=== PATIENT | female | born 1975 | race Caucasian/White ===

== ENCOUNTER 2021-06-22 11:48 | Outpatient (CLI) | payer OTHER, SELFPAY ==
--- NOTE | 2021-06-22 12:00 | RT.EKG_ITS ---
APPROVED REPORT Exam: Resting ECG Reason for Exam: hypertention Patient Location: O HR:103 bpm ECG Measurements Heart Rate 103 AXIS [place] 157 P 47 QRSd 87 QRS -12 QT 356 T 11 QTc 467 Conclusion Sinus tachycardia...rate> 99
== END 2021-06-22 11:49 | disposition home or self-care (01) ==
PROVIDERS: PCP Family Medicine; Visit Provider Family Medicine
DX: I10 Essential (primary) hypertension (principal)
CPT/HCPCS: 93010

== ENCOUNTER 2021-07-21 03:19 | Outpatient (CLI) | payer OTHER, SELFPAY ==
[2021-07-21 08:42] LABS: Abs Immature Grans 0.03 10^3/uL (0.0-0.06); Absolute Basophil Count 0.04 10^3/uL (0.0-0.2); Absolute Eosinophil Count 0.41 10^3/uL (0.0-0.7); Absolute Lymphocyte Count 1.82 10^3/uL (1.2-3.4); Absolute Neutrophil Count 6.05 10^3/uL (1.2-6.7); Basophils % 0.5; Eosinophils % 4.7; HCT 42.3 % (36.0-46.0); HGB 12.9 g/dL (11.2-15.7); Immature Grans % 0.3; Lymphocytes % 20.8; MCH 25.6 pg (27.0-33.0); MCHC 30.5 % (32.0-36.0); MCV 84.1 fL (80-95); MPV 9.2 fL (8.0-11.0); Monocytes % 4.6; Neutrophils % 69.1; Nucleated RBC 0 %; Platelet Count 373 10^3/uL (130-400); RBC 5.03 10^6/uL (3.93-5.22); RDW 13.2 % (11.7-14.6); RDW-SD 40.5 fL; WBC 8.75 10^3/uL (4.4-10.8)
[2021-07-21 08:45] LABS: Bilirubin Negative (Negative); Blood Trace-intact (Negative); Clarity Clear (Clear); Glucose Negative (Negative); Ketones Negative (Negative); Leukocyte Esterase Trace (Negative); Nitrite Negative (Negative); Specific Gravity 1.025 (1.005-1.025); Urobilinogen 0.2 EU/dL (Up TO 0.2); pH 5.5 (5-8)
[2021-07-21 08:53] LABS: Bacteria Rare HPF (Negative); C & S Indicated? No/Sq. Contamination; Casts Negative LPF (Negative); Crystals Negative HPF (Negative); Epithelial Cells Moderate HPF (Negative); Mucus Negative (Negative); RBC 0-2 HPF (0-2); WBC 0-2 HPF (0-5)
[2021-07-21 10:02] LABS: ALT 19 U/L (14-59); AST 14 U/L (15-37); Albumin 3.4 g/dL (3.4-5.0); Alkaline Phosphatase 120 U/L (46-116); Anion Gap 10.3 mmol/L (3-11); BUN 18 mg/dL (7-18); Bilirubin, Total 0.3 mg/dL (0.2-1.0); CO2 27.7 mmol/L (21.0-32.0); CREATININE 0.8 mg/dL (0.55-1.02); Calcium 8.8 mg/dL (8.5-10.1); Calculated LDL 166 mg/dL (<100); Chloride 106 mmol/L (98-107); Cholesterol 242 mg/dL (<200); Glucose 94 mg/dL (74-106); HDL Cholesterol 44 mg/dL (40-60); Potassium 3.8 mmol/L (3.5-5.1); Sodium 144 mmol/L (136-145); TSH (W/Ref FT4) 2.64 uIU/mL (0.36-3.74); Total Protein 7.2 g/dL (6.4-8.2); Triglyceride 164 mg/dL (<150)
[2021-07-22 09:51] LABS: HIV-1/2 Ag & Ab Screen Negative (Negative)
[2021-07-22 11:30] LABS: Hepatitis C Ab w Rflx HCV PCR Negative (Negative)
== END 2021-07-21 03:20 | disposition home or self-care (01) ==
PROVIDERS: PCP Family Medicine; Visit Provider Family Medicine
DX: Z11.59 Encounter for screening for other viral diseases (principal); I10 Essential (primary) hypertension; Z11.4 Encounter for screening for human immunodeficiency virus [HIV]
CPT/HCPCS: 36415; 80053; 80061; 86803; 87389; 81003; 81015; 84443; 85025

== ENCOUNTER 2021-11-19 10:22 | Outpatient (CLI) | payer OTHER, SELFPAY ==
[2021-11-19 10:39] LABS: Source Nasal/Nares
[2021-11-19 14:10] LABS: COVID-19 PCR Negative (Negative)
== END 2021-11-19 10:23 | disposition home or self-care (01) ==
LOC: LBO 10:23
PROVIDERS: PCP Nurse Practitioner; Visit Provider Obstetrics & Gynecology
DX: Z20.822 Contact with and (suspected) exposure to COVID-19 (principal)
CPT/HCPCS: 87635

== ENCOUNTER 2021-11-25 09:46 | Outpatient (CLI) | payer OTHER, SELFPAY ==
[2021-11-25 11:06] LABS: Source Nasal/Nares
[2021-11-25 14:17] LABS: COVID-19 PCR Negative (Negative)
== END 2021-11-25 09:47 | disposition home or self-care (01) ==
LOC: LBO 09:47
PROVIDERS: PCP Nurse Practitioner; Visit Provider Obstetrics & Gynecology
DX: Z20.822 Contact with and (suspected) exposure to COVID-19 (principal)
CPT/HCPCS: 87635

== ENCOUNTER 2021-11-27 18:19 | Outpatient (REF) | payer OTHER, SELFPAY ==
[2021-11-27 09:37] LABS: Source Nasal/Nares
[2021-11-27 12:11] LABS: COVID-19 PCR Negative (Negative)
== END 2021-11-27 18:20 | disposition home or self-care (01) ==
LOC: LBN 18:19
PROVIDERS: PCP Nurse Practitioner; Visit Provider Obstetrics & Gynecology
DX: Z20.822 Contact with and (suspected) exposure to COVID-19 (principal)
CPT/HCPCS: 87635

== ENCOUNTER 2022-02-02 14:43 | Outpatient (REF) | payer OTHER, SELFPAY ==
[2022-02-03 20:10] LABS: COVID-19 RT-PCR UVMMC Result Negative (Negative)
== END 2022-02-02 14:44 | disposition home or self-care (01) ==
LOC: LBN 14:43
PROVIDERS: PCP Nurse Practitioner; Visit Provider Obstetrics & Gynecology
DX: Z20.822 Contact with and (suspected) exposure to COVID-19 (principal)
CPT/HCPCS: 87635; U0003

== ENCOUNTER 2022-02-03 08:41 | Outpatient (CLI) | payer OTHER, SELFPAY ==
--- NOTE | 2022-02-03 09:30 | HOLTER_ITS ---
APPROVED REPORT Conclusion This is a 48-hour Holter monitor ordered for palpitations Rhythm throughout was sinus with an average heart rate of 76. Minimum was 53, maximum 115 There were very rare isolated premature ventricular contractions There were very rare isolated atrial premature beats. There was one self-limited atrial run, 7 beats in duration, rate 110/min There was no atrial fibrillation, no high-grade AV block, no pauses greater than 3 seconds No patient symptoms were reported
== END 2022-02-03 08:42 | disposition home or self-care (01) ==
LOC: RT 08:41
PROVIDERS: PCP Nurse Practitioner; Visit Provider Nurse Practitioner
DX: R00.2 Palpitations (principal); I49.1 Atrial premature depolarization
CPT/HCPCS: 93225

== ENCOUNTER 2022-02-03 09:56 | Outpatient (RCR) | payer OTHER, SELFPAY | END 2022-02-14 23:59 | disposition home or self-care (01) | LOC: RT 09:56 | PROVIDERS: PCP Nurse Practitioner; Visit Provider Nurse Practitioner | DX: R00.2 Palpitations (principal); I49.1 Atrial premature depolarization | CPT/HCPCS: 93225; 93226 ==

== ENCOUNTER 2022-02-04 09:38 | Outpatient (CLI) | payer OTHER, SELFPAY ==
[2022-02-04 09:42] LABS: Source Nasal/Nares
[2022-02-04 10:41] LABS: COVID-19 PCR Negative (Negative)
== END 2022-02-04 09:39 | disposition home or self-care (01) ==
LOC: LBO 09:39
PROVIDERS: PCP Nurse Practitioner; Visit Provider Obstetrics & Gynecology
DX: Z20.822 Contact with and (suspected) exposure to COVID-19 (principal)
CPT/HCPCS: 87635

== ENCOUNTER 2022-03-17 10:25 | Outpatient (REF) | payer OTHER, SELFPAY ==
[2022-03-17 11:32] LABS: Source Nasal/Nares
[2022-03-17 14:20] LABS: COVID-19 PCR Negative (Negative)
== END 2022-03-17 10:26 | disposition home or self-care (01) ==
LOC: LBN 10:25
PROVIDERS: PCP Obstetrics & Gynecology; Visit Provider Obstetrics & Gynecology
DX: Z20.822 Contact with and (suspected) exposure to COVID-19 (principal)
CPT/HCPCS: 87635

== ENCOUNTER 2022-04-06 17:31 | Outpatient (REF) | payer OTHER, SELFPAY ==
[2022-04-06 11:46] LABS: Source Nasal/Nares
[2022-04-06 12:22] LABS: COVID-19 PCR Negative (Negative)
== END 2022-04-06 17:32 | disposition home or self-care (01) ==
LOC: LBN 17:31
PROVIDERS: PCP Nurse Practitioner; Visit Provider Obstetrics & Gynecology
DX: Z20.822 Contact with and (suspected) exposure to COVID-19 (principal)
CPT/HCPCS: 87635

== ENCOUNTER 2022-05-07 09:32 | Outpatient (CLI) | payer OTHER, SELFPAY ==
[2022-05-07 09:39] LABS: Source Nasal/Nares
[2022-05-07 10:13] LABS: COVID-19 PCR Negative (Negative)
== END 2022-05-07 09:33 | disposition home or self-care (01) ==
LOC: LBO 09:32
PROVIDERS: PCP Nurse Practitioner Family; Visit Provider Obstetrics & Gynecology
DX: Z20.822 Contact with and (suspected) exposure to COVID-19 (principal)
CPT/HCPCS: 87635

== ENCOUNTER 2022-05-10 10:00 | Outpatient (CLI) | payer OTHER, SELFPAY ==
[2022-05-10 10:19] LABS: Source Nasal/Nares
[2022-05-10 10:53] LABS: COVID-19 PCR Negative (Negative)
== END 2022-05-10 10:01 | disposition home or self-care (01) ==
LOC: LBO 10:01
PROVIDERS: PCP Nurse Practitioner Family; Visit Provider Obstetrics & Gynecology
DX: Z20.822 Contact with and (suspected) exposure to COVID-19 (principal)
CPT/HCPCS: 87635

== ENCOUNTER 2023-01-28 10:24 | Outpatient (REF) | payer OTHER, SELFPAY ==
--- NOTE | 2023-01-28 09:30 | PAPFT_PTH ---
PATIENT: Kiera Prabhakar LOC: [facility] U#:[id number] AGE/SX: 47/F ROOM: RE01/28/[address]: Rachel Moreno DO : 1975 BED: DIS: 01/28/2023 SPEC #: [id number] RECD: 01/28/23 13:10 STATUS: WILLIAM REQ #: [id number] KRISHNA: 01/28/23 09:[address]: Rachel Moreno DEPT: [facility] Cytology RECD BY: Licha Hernandez ENTERED: 01/28/23 13:11 SP TYPE: PAPFT OTHR DR: Jerry Nicole DNP Tissues: 1 - CX/ENDOCX FOR PAP SMEARS Procedures: PAP THIN PREP/UVM Screening HPV DNA PROBE Comments: [id number]
== END 2023-01-28 10:25 | disposition home or self-care (01) ==
LOC: LBN 10:24
PROVIDERS: PCP Nurse Practitioner Family; Visit Provider Obstetrics & Gynecology
DX: Z12.4 Encounter for screening for malignant neoplasm of cervix (principal); Z11.51 Encounter for screening for human papillomavirus (HPV)
CPT/HCPCS: 88142; 87624

== ENCOUNTER 2023-02-03 12:03 | Day surgery (SDC) | payer OTHER, SELFPAY ==
--- NOTE | 2023-02-02 20:04 | ENDO_ITS ---
Date of service: 02/03/23 Time of Service: 13:32 Endoscopy Report DATE OF PROCEDURE: 02/03/23 PRE-OP DIAGNOSIS: Gastritis POST-OP DIAGNOSIS: other (Peptic ulcer) PROCEDURE: EGD with biopsies SURGEON: Branden Quintana ANESTHESIA TYPE: General:No Airway ESTIMATED BLOOD LOSS: 5 PATHOLOGY: other (Gastric ulcer, random gastric biopsies) COMPLICATIONS: None DISPOSITION: same day INDICATIONS: Kiera is a 47-year-old woman with midepigastric gnawing abdominal pain. PROCEDURE START TIME: 13:18 PROCEDURE END TIME: 13:26 FINDINGS: Prepyloric gastric ulcer PROCEDURE DESCRIPTION: After the initiation of monitored anesthetic care, and with the assistance of a bite block, I advanced a standard gastroscope through the mouth past the hypopharynx and into the esophagus.? Under the direct vision of the scope, I advanced down the esophagus into the stomach.? Once I entered the stomach, I p erformed a brief inspection, followed by retroflexion towards the gastric cardia.? This appeared normal.? After that, I gently advanced the scope around the incisura angularis and examined the pylorus. There was a small amount of old blood right at the gastric antrum.? As I advanced towards the pylorus, there was a gastric ulcer just a few centimeters before the pyloric muscle. It was within the antrum. There was some mild stigmata of recent bleeding. The edges were smooth and rounded. I did perform cold forcep biopsy of the ulcer margin. There was minimal bleeding. Next, I advanced the scope through the pylorus into the duodenum.? The mucosa was pink and healthy appearing.? There were no abnormalities.? I was able to visualize bile draining into the duodenum through the ampulla Vater. ?Next, I began retracting the endoscope.? I brought the camera back into the stomach.? There were a few rare fundic gland polyps. Otherwise, the gastric body and cardia appeared normal. There was no evidence of hiatal hernia. I perform some random biopsies of the gastric antrum and gastric body to rule out H. pylori. I then gently desufflated some of the stomach, and withdrew the endoscope into the distal esophagus. The GE junction and Z-line were normal-appearing at 36 cm. ?Finally, I withdrew the scope along the length of the esophagus taking great care to examine the entirety of the mucosa.? I did not appreciate any abnormalities.
--- NOTE | 2023-02-02 20:04 | W.PREOPHP ---
Assessment and Plan Assessment and plan (1) Epigastric pain: Status: Acute Assessment and plan: We discussed the risks and benefits of diagnostic EGD today. I think she has a good understanding of the nature of the procedure. We will proceed as planned. History of Present Illness History of Present Illness Chief Complaint: Midepigastric pain Narrative: Kiera is 47 years old, and she was just admitted to [facility] with a chief complaint of a cute onset of midepigastric pain associated with lethargy and fatigue. She describes it as stabbing and gnawing, and right in the mid epigastric region. She tells me that [place] she had elevated D-dimer. She underwent CAT scans of the chest abdomen and pelvis were all negative. She was worked up for gallstones which was negative. She was started on Cipro and Flagyl, but she developed a rash, and in the absence of a unifying diagnosis, antibiotics were discontinued. She was advised to follow-up with an upper endoscopy and discharged. She is here today for EGD. PFSH All Active Problems (Updated 02/03/23 @ 12:34 by Branden Quintana MD) Epigastric pain (Acute) Essential hypertension (Chronic) Tachycardia (Chronic) Obesity (Chronic) Hyperlipidemia (Chronic) Anxiety (Chronic) Well woman exam with routine gynecological exam (Acute) Medical History Suspected sleep apnea Surgical History S/P appendectomy Per pt. states it burst when she was 3 years old but it was never removed. Family History Mother Rheumatic fever Father Diabetes Personal history of malignant neoplasm colon cancer - dx late 50's Gallstone pancreatitis Disorder of gallbladder Brother No problems noted. Social History Smoking/Tobacco Use Status: Never Second Hand Exposure: Yes Smoking risk assessment performed?: Yes Alcohol Intake: never Drug use: Never Substance use type: does not use Caregiver/Support person: No Household members: spouse Housing: house Communication Needs: None Do you need help understanding health information?: Never Pets and animals: Yes Pets and animals: dog(s) Sexually active: Yes Do you think of yourself as: straight/heterosexual Current gender identity: female What is your relationship status?: How often do you talk on the phone with friends or family?: three or more times per week How often do you get together with friends or relatives?: three or more times per week How often do you attend baptism or presybeterian services?: decline to answer Do you belong to any clubs or organized social groups?: no Panel score (0-1 are the most socially isolated patients): 2 What type of physical activity do you participate in: walking Duration: 15-30 minutes/day Frequency: 3-4 times per week Odalis/Amish: [employer] Special odalis needs: No Seatbelt use: always Drive intox or ride w/intox dolly driver: No Do you feel safe at home: Yes Do you feel safe in your relationship?: Yes History History 3 Para 3 Hx # Term Pregnancies 3 Multiple births Hx # Pregnancies Ectopic pregnancies AB induced Hx Number of Living Children 3 AB spontaneous Meds Allergies and Home Medications Allergies Allergy/AdvReac Type Severity Reaction Status Date / Time cephalexin [From Keflex] Allergy Severe Other (See Unverified 02/03/23 12:20 Comment) metronidazole [From Flagyl] Allergy Severe Other (See Unverified 02/03/23 12:20 Comment) Penicillins Allergy Severe Skin Rash Unverified 02/03/23 12:20 Sulfa (Sulfonamide AdvReac Severe colitis Unverified 02/03/23 12:20 Antibiotics) Home Medications Medication Instructions Recorded Confirmed Type metoprolol succinate 25 mg 25 mg PO DAILY #90 tabs 02/09/22 02/03/23 Rx tablet,extended release 24 hr trazodone 50 mg tablet 50 mg PO QHS PRN sleep #20 tabs 12/07/22 02/02/23 Rx triamcinolone acetonide 0.1 % 1 applic topical BID #30 grams 12/07/22 02/02/23 Rx topical cream Exam Const General: cooperative, healthy appearing and comfortable Orientation: awake and oriented x3 Eyes General: appearance normal, both eyes and all related structures Conjunctivae: conjunctivae normal Sclera: sclerae normal Resp Effort & Inspection: normal respiratory effort and able to speak in complete sentences Auscultation: clear to auscultation bilaterally Cardio Jugular venous pressure: no JVD Rate: regular rate Rhythm: regular rhythm Heart Sounds: S1 normal and S2 normal GI Inspection: non-distended Palpation: soft, no guarding, no hernias and tender (Mild midepigastric tenderness without any masses) Auscultation: normal bowel sounds Skin General skin exam: normal turgor Neuro General: patient alert, patient awake and patient oriented x3 Cognition: normal cognition Extrem Right lower extremity: no edema Left lower extremity: no edema
[2023-02-03 12:25] VITALS: BP 160/92; PULSE 82; RESP 16; TEMP 36.8; O2SAT 92
--- NOTE | 2023-02-03 12:34 | W.PM.DSUDISC ---
Date of service: 02/03/23 Time of Service: 13:27 Discharge Plan Disposition Patient Disposition: Home Discharge Details Attending Provider: Branden Quintana Primary Care Provider: Jerry Huston Home Meds and New Rx's Prescriptions: New omeprazole 20 mg capsule,delayed release(DR/EC) 20 mg PO BID Qty: 28 0RF Rx Instructions: Take 1 tablet by mouth in the morning, and 1 tablet by mouth in the evening sucralfate 1 gram tablet 1 g PO QACHS Qty: 56 0RF Continued trazodone 50 mg tablet 50 mg PO QHS PRN (Reason: sleep) Qty: 20 0RF triamcinolone acetonide 0.1 % cream 1 applic topical BID Qty: 30 0RF metoprolol succinate 25 mg tablet extended release 24 hr 25 mg PO DAILY Qty: 90 3RF Discharge Instructions Instructions: Peptic Ulcer (GEN), Diet for Stomach Ulcers and Gastritis (GEN) Additional Instructions: Kiera, we were able to complete your endoscopy today without any problems. You do have a small stomach ulcer. I did some biopsies of it. I also took some other random biopsies of your stomach to see if we can reveal the source of the ulcer. We will take a week or so to get those results. In the meantime, you should avoid taking any type of nonsteroidal anti-inflammatory medication such as aspirin, ibuprofen, or naproxen. I have added prescriptions for you for 2 new medications. 1 is called sucralfate. This helps to neutralize bile salts in the stomach, and perhaps coat the base of the ulcer in order to promote healing. The other medication is omeprazole. This is a proton pump inhibitor. Essentially, it is a very strong antacid. We will plan to treat for 14 days, and then see how you feel. In the meantime, when I get the results of the biopsies I will be in touch with my advice for the next steps. Please feel free to call me at any point if you have any questions. 1. If tolerated, consume a soft, low fiber diet for 1-2 days. 2. Do not drive, drink alcohol, operate machinery, make critical decisions, or do activities that require coordination or balance for 24 hours. 3. You may experience a sore throat for 24 to 48 hours. You may use throat lozenges or gargle with warm salt water to relieve the discomfort. 4. Because air was put into your stomach during the procedure, you may experience some belching. 5. Go directly to the emergency room if you notice any of the following: Develop chills (warm to touch), or if you have a thermometer and your temperature is above 101 Difficulty breathing or difficultly swallowing Persistent vomiting Severe abdominal pain, other than gas cramps Severe chest pain Black, tarry stools Any bleeding ? exceeding one tablespoon 6. Call your physician if the site where your intravenous was started becomes red, swollen, painful, and warm to touch. 7. Your physician has reviewed your pre-procedure medications. Please continue to take those medications as previously ordered. You will be given specific information/education regarding any changes to your medications before leaving. Activity:: Activity as Tolerated Diet:: Gastritis diet Discharge Orders Discharge Orders: Discharge Order (Routine); Ordered 02/02/23 Ordered By: Branden Quintana DS: Diagnosis Discharge Diagnosis (1) Epigastric pain: Status: Acute
--- NOTE | 2023-02-03 12:44 | W.ANESPRE ---
General Info Date of Service Date Performed: 02/03/23 Height: 5 ft 5.25 in Weight: 111.4 kg Body Mass Index (BMI): 40.5 Surgical Procedure: Operation Date: 02/03/23 13:05 Proposed Procedure Side Surgeon p Gastroscopy Branden Quintana MD Actual Procedure Side Surgeon p Gastroscopy Not Applicable Branden Quintana MD Pre-Op Diagnosis Post-Op Diagnosis EGD Meds Allergies and Home Medications Allergies Allergy/AdvReac Type Severity Reaction Status Date / Time cephalexin [From Keflex] Allergy Severe Other (See Unverified 02/03/23 12:20 Comment) metronidazole [From Flagyl] Allergy Severe Other (See Unverified 02/03/23 12:20 Comment) Penicillins Allergy Severe Skin Rash Unverified 02/03/23 12:20 Sulfa (Sulfonamide AdvReac Severe colitis Unverified 02/03/23 12:20 Antibiotics) Home Medication Medication Instructions Recorded metoprolol succinate 25 mg 25 mg PO DAILY #90 tabs 02/09/22 tablet,extended release 24 hr trazodone 50 mg tablet 50 mg PO QHS PRN sleep #20 tabs 12/07/22 triamcinolone acetonide 0.1 % 1 applic topical BID #30 grams 12/07/22 topical cream Current Visit Medications: Current Medications Generic Name Dose Route Start Last Admin Trade Name Freq PRN Reason Stop Dose Admin Ringer's Solution 1,000 mls @ 80 mls/hr 02/03/23 06:00 IV 03/04/23 23:59 INFUSION EFRAÍN IV Miscellaneous Supplies 1 each 02/03/23 06:00 Iv Access IV 03/04/23 23:59 DIRECTED EFRAÍN Ondansetron HCl 4 mg 02/02/23 20:05 Ondansetron 4 Mg/2 Ml Vial IVP 03/04/23 20:04 Q4H PRN PRN Nausea / Vomiting Sodium Chloride 0 ml 02/03/23 06:00 Normal Saline Flush 10 Ml Syr IV 03/04/23 23:59 PRN PRN Sodium Chloride 0 ml 02/03/23 06:00 Normal Saline 10 Ml Vial IJ 03/04/23 23:59 DIRECTED PRN Sterile Water 0 ml 02/03/23 06:00 Water,Injection,Sterile 10 Ml Vial IJ 03/04/23 23:59 DIRECTED PRN PFSH Active Problems Active Problems: Problem Status Onset Code Epigastric pain R10.13 Essential hypertension I10 Tachycardia R00.0 Obesity E66.9 Hyperlipidemia E78.5 Anxiety F41.9 Well woman exam with routine gynecological exam Z01.419 Medical History Medical History Suspected sleep apnea Surgical History Surgical History S/P appendectomy Per pt. states it burst when she was 3 years old but it was never removed. Tobacco Smoking/Tobacco Use Status: Never Passive smoking exposure: Yes Second hand exposure: Yes Alcohol Alcohol Intake: never Substance Use Substance use: Never Substance use type: does not use Prental History History 3 Para 3 Hx # Term Pregnancies 3 Multiple births Hx # Pregnancies Ectopic pregnancies AB induced Hx Number of Living Children 3 AB spontaneous Vital Signs and Lab Results Vital Signs Most Recent Vital Signs in EMR: Most Recent Vital Signs Temp Pulse Resp BP Pulse Ox 36.8 C 82 16 160/92 H 92 02/03/23 12:25 02/03/23 12:25 02/03/23 12:25 02/03/23 12:25 02/03/23 12:25 Lab Results Blood Type / Crossmatch: No Data to Display Complete Blood Count: No Data to Display Complete Metabolic Panel: No Data to Display Liver Function Panel: No Data to Display Coagulation Panel: No Data to Display Cardiac Panel: No Data to Display Arterial Blood Gas: No Data to Display Venous Blood Gas: No Data to Display Pancreas Panel: No Data to Display Thyroid Panel: No Data to Display Infectious Disease: No Data to Display Blood Cultures: No Data to Display Toxicology Panel: No Data to Display Panel: No Data to Display Anesthesia Assessment and Plan Anesthesia History Personal History: No History of Anesthesia Complications Family History: No Family History of Anesthesia Complications Exercise Tolerance Exercise Tolerance: Metabolic Equivalents>4 Pertinent Negatives Pertinent Negatives: No Symptoms of GERD Cardiac & Pulmonary Exam Cardiac Exam: Normal S1/S2 Heart Sounds Pulmonary Exam: Clear Bilateral Breath Sounds Implantable Cardiac Device Does patient have a Pacemaker or an ICD?: No Airway Exam Known Difficult Airway: No Mallampati Class: 1 Mouth Opening: Normal (> 3cm) Thyromental Distance: Greater than 3 cm Neck Range of Motion: Full ROM Neck Circumference: Normal Teeth Condition: Normal Dentition ASA Classification ASA Score: ASA 3 Emergency Case?: No NPO Status NPO Status: NPO Clears >2 hours, Solids >8 hours Status Status: Pt. refuses testing, she was counseled on anesthesia risks Anesthesia Plan Resuscitation Status: Full Code Anesthesia Technique: General Anesthesia Airway Planned: Natural Airway Monitors Used: Standard Monitors
[2023-02-03 12:46] VITALS: BMI 40.5
[2023-02-03] MEDS: Lactated Ringers 1,000 ML 80 ML IV (13:00)
--- NOTE | 2023-02-03 13:20 | STOM_PTH ---
PATIENT: Kiera Prabhakar LOC: [facility] U#:[id number] AGE/SX: 47/F ROOM: RE02/03/[address]: Branden Quintana MD : 1975 BED: DIS: 02/03/2023 SPEC #: [id number] RECD: 02/03/23 13:43 STATUS: WILLIAM RE #: [id number] KRISHNA: 02/03/23 13:[address]: Branden Quintana DEPT: Surgical Specimen RECD BY: Licha Hernandez ENTERED: 02/03/23 13:44 SP TYPE: STOMACH OTHR DR: Jerry Nicole DNP Tissues: 1 - STOMACH BIOPSY 2 - STOMACH BIOPSY Procedures: GROSS AND MICRO LEVEL 4 Comments: [id number]
[2023-02-03 13:31] VITALS: BP 142/97; PULSE 98; RESP 16; TEMP 36.5; O2SAT 93
[2023-02-03 14:00] VITALS: BP 142/97; PULSE 87; RESP 15; TEMP 36.5; O2SAT 94
--- NOTE | 2023-02-03 14:00 | W.ANESPOSTOP ---
Postoperative Evaluation Date, Time and Location Date Performed: 02/03/23 Time Performed: 14:01 Patient Location: Day Surgery Unit Vital Signs Most Recent Imported Vital Signs: Most Recent Vital Signs Temp Pulse Resp BP Pulse Ox 36.5 C 98 H 16 142/97 H 93 02/03/23 13:31 02/03/23 13:31 02/03/23 13:31 02/03/23 13:31 02/03/23 13:31 Pain Score Most Recent Pain Score: Most Recent Pain Score Pain Level 0 02/03/23 13:31 Assessment Mental Status: Awake (Alert & Oriented to Patient Baseline) Airway and Respiratory Function: Patent airway with normal (patient baseline) respiratory exam Cardiovascular Function: Hemodynamically Stable Hydration Status: Adequately Hydrated Nausea & Vomiting: No Nausea or Vomiting Pain: Pt. Denies Any Pain Peripheral Nerve Block: Patient did not receive a nerve block
== END 2023-02-03 14:25 | disposition home or self-care (01) ==
PROVIDERS: PCP Nurse Practitioner Family; Visit Provider Surgery
PROC: 0DJ68ZZ Inspection of Stomach, Via Natural or Artificial Opening Endoscopic (ICD-10-PCS; CPT 43235; principal; 2023-02-03 13:00)
DX: R10.13 Epigastric pain (principal); K25.9 Gastric ulcer, unspecified as acute or chronic, without hemorrhage or perforation; K31.9 Disease of stomach and duodenum, unspecified
CPT/HCPCS: 43239; 88305; J2001; J2704

== ENCOUNTER 2023-02-10 15:56 | Emergency (ER) | payer OTHER, SELFPAY ==
--- NOTE | 2023-02-10 15:45 | RT.EKG_ITS ---
APPROVED REPORT Exam: Resting ECG Reason for Exam: chest pain Patient Location: E HR:124 bpm ECG Measurements Heart Rate 124 AXIS [place] 153 P 36 QRSd 76 QRS -31 QT 314 T 3 QTc 451 Conclusion Age and gender not entered, assume 48 yo male for purpose of ECG interpretation Sinus tachycardia...rate> 99 Left ventricular hypertrophy...multiple voltage criteria
[2023-02-10 15:58] VITALS: BP 159/108; PULSE 124; RESP 18; TEMP 36.8; O2SAT 99
--- NOTE | 2023-02-10 16:00 | DI.US_ITS ---
Exam(s) US LOWER EXTREMITY VENOUS RT EXAM: US LOWER EXTREMITY VENOUS RT CLINICAL HISTORY: PAIN, swelling TECHNIQUE: Right lower extremity venous ultrasound performed using grayscale, color-flow, and spectr al Doppler analysis. COMPARISON: No exams were available for comparison FINDINGS: The right common femoral, femoral and popliteal veins demonstrate normal compressibility, augmentatio n, and color Doppler. The posterior tibial and peroneal veins are patent. The saphenofemoral junctio n is unremarkable. There is no evidence of a Schrader cyst. The soft tissues are unremarkable. IMPRESSION: No evidence of a right lower extremity DVT. DATA REPOSITORY:
--- NOTE | 2023-02-10 16:00 | DI.CT_ITS ---
Exam(s) CT CHEST PE CTA EXAM: CT CHEST PE CTA CLINICAL HISTORY: sob. TECHNIQUE: Imaging Protocol: Axial CT angiography was performed with multi-slice acquisition and mu lti-planar and/or 3D reconstructions. CONTRAST MATERIAL: Intravenous: Omnipaque 350 contrast volume:90 mL COMPARISON: No exams were available for comparison FINDINGS: The examination is limited due to patient motion artifact. Tracheobronchial tree: Patent where visualized. Pulmonary parenchyma: No consolidation or dominant measurable mass. No architectural distortion. Mild ground-glass opacities seen throughout the lungs bilaterally. Pulmonary Arteries: No evidence of filling defect to suggest pulmonary emboli. The subsegmental pulmo nary arteries are poorly evaluated due to patient motion artifact. Mediastinum and Farnaz: No dominant adenopathy or fluid collection. The esophagus is unremarkable. Th ere is a small hiatal hernia. Visualized thyroid gland: Unremarkable. Pleura: No effusion or pneumothorax. Heart: The heart is not dilated. No coronary artery calcifications are seen. No pericardial effusion. Aorta: Thoracic aorta non-dilated. No evidence of dissection. Upper abdomen: Unremarkable. Soft tissues: Unremarkable. Bones: Within normal limits for the patient's age. IMPRESSION: 1. Examination is limited due to patient motion artifact particularly in the lung bases. 2. No evidence of pulmonary embolism, thoracic aortic dissection or aneurysm. 3. Mild ground-glass opacities which can be seen with small vessel or small airways disease. Please correlate clinically. RADIATION DOSE DELIVERED: 388.91mGy.cm Total DLP DATA REPOSITORY: All CT scans at this facility are submitted to the National Radiology Data Registry (NRDR) Dose Index Registry (DIR) with the [employer] (ACR). RADIATION OPTIMIZATION: All CT scans at this facility use at least one of these dose optimization te chniques: automated exposure control; mA and/or kV adjustment per patient size (includes targeted exa ms where dose is matched to clinical indication); or iterative reconstruction.
[2023-02-10 16:30] VITALS: BP 163/107; PULSE 108; RESP 18; TEMP 36.6; O2SAT 97
--- NOTE | 2023-02-10 17:19 | W.ED.GENAD ---
Discharge Plan Disposition Condition: Improving Discharge Details Chief Complaint: Chest Pain Clinical Impression: Tachycardia, Dyspnea on exertion Primary Care Provider: Jerry Huston ED Provider: Beth Bruce Home Meds and New Rx's Prescriptions: No Action trazodone 50 mg tablet 50 mg PO QHS PRN (Reason: sleep) Qty: 20 0RF triamcinolone acetonide 0.1 % cream 1 applic topical BID Qty: 30 0RF metoprolol succinate 25 mg tablet extended release 24 hr 25 mg PO DAILY Qty: 90 3RF omeprazole 20 mg capsule,delayed release(DR/EC) 20 mg PO BID Qty: 28 0RF Rx Instructions: Take 1 tablet by mouth in the morning, and 1 tablet by mouth in the evening sucralfate 1 gram tablet 1 g PO QACHS Qty: 56 0RF Medical Decision Making 47-year-old female with recently diagnosed peptic ulcer disease presents for evaluation of dyspnea on exertion and tachycardia. EKG on arrival shows sinus tachycardia with left ventricular hypertrophy. While in the emergency department patient's heart rate improved. DuoNeb was ordered for decreased air exchange on initial exam. Patient declined DuoNeb as she was starting to feel better and did not want to have heart rate to increase again. Laboratory studies including initial troponin are unremarkable. CT of the chest and repeat troponin are currently pending. Discussed with patient that she will likely require stress test. Signed out to Dr. Cardozo with remainder of work-up and disposition pending. [facility] General Date/Time Provider Initiated Documentation: 02/10/23 16:01. HPI Narrative: 47-year-old female with history of recently diagnosed peptic ulcer presents for evaluation of tachycardia and dyspnea with exertion. 2 weeks ago patient went to outside facility for chest pain and abdominal pain. She was having vomiting at that time. She states that that she spent 5 days in [facility] including 3 days in the ICU. She had an elevated D-dimer but negative CT of her chest with contrast. They were unable to perform a stress test while she was there but she had a negative echocardiogram. Since discharge she had endoscopy performed which showed a peptic ulcer. She was started on Carafate and omeprazole. She states that she has had some fatigue while home over the last week. Today she difficulty with shortness of breath with exertion. She was also very diaphoretic. She felt like her heart was racing. She denies any history of arrhythmia. Denies any fevers or chills. She has had some right calf pain over the last 3 days. No history of blood clot. No history of smoking. She had been on a low-dose of metoprolol prior to her admission but her blood pressure was so good during the admission that they told her to discontinue it. She does not take any anticoagulation. No fevers or chills. She is tolerating p.o. She did use a inhaler when she had COVID but otherwise has not had history of bronchitis. Related Data Home Medications Medication Instructions Recorded Confirmed metoprolol succinate 25 mg 25 mg PO DAILY #90 tabs 02/09/22 02/03/23 tablet,extended release 24 hr trazodone 50 mg tablet 50 mg PO QHS PRN sleep #20 tabs 12/07/22 02/02/23 triamcinolone acetonide 0.1 % 1 applic topical BID #30 grams 12/07/22 02/02/23 topical cream omeprazole 20 mg capsule,delayed 20 mg PO BID #28 caps 02/03/23 release sucralfate 1 gram tablet 1 g PO QACHS #56 tabs 02/03/23 Previous Rx's Medication Instructions Recorded metoprolol succinate 25 mg 25 mg PO DAILY #90 tabs 02/09/22 tablet,extended release 24 hr trazodone 50 mg tablet 50 mg PO QHS PRN sleep #20 tabs 12/07/22 triamcinolone acetonide 0.1 % 1 applic topical BID #30 grams 12/07/22 topical cream omeprazole 20 mg capsule,delayed 20 mg PO BID #28 caps 02/03/23 release sucralfate 1 gram tablet 1 g PO QACHS #56 tabs 02/03/23 Allergies Allergy/AdvReac Type Severity Reaction Status Date / Time cephalexin [From Keflex] Allergy Severe Other (See Unverified 02/03/23 12:20 Comment) metronidazole [From Flagyl] Allergy Severe Other (See Unverified 02/03/23 12:20 Comment) Penicillins Allergy Severe Skin Rash Unverified 02/03/23 12:20 Sulfa (Sulfonamide AdvReac Severe colitis Unverified 02/03/23 12:20 Antibiotics) General Stated Complaint: Chest Pain GERALD: 2 Review of Systems Narrative: Remainder of review of systems otherwise negative except as noted in the HPI x10. PFSH All Active Problems (Updated 02/10/23 @ 19:47 by Beth Bruce MD) Tachycardia (Acute) Dyspnea on exertion (Acute) Gastric ulcer (Acute) Epigastric pain (Acute) Essential hypertension (Chronic) Tachycardia (Chronic) Obesity (Chronic) Hyperlipidemia (Chronic) Anxiety (Chronic) Well woman exam with routine gynecological exam (Acute) Medical History (Updated 02/10/23 @ 19:47 by Beth Bruce MD) Suspected sleep apnea Surgical History (Updated 02/04/23 @ 13:45 by Mirna Whitaker) History of esophagogastroduodenoscopy S/P appendectomy Per pt. states it burst when she was 3 years old but it was never removed. Family History Mother Rheumatic fever Father Diabetes Personal history of malignant neoplasm colon cancer - dx late 50's Gallstone pancreatitis Disorder of gallbladder Brother No problems noted. Social History Smoking/Tobacco Use Status: Never Second Hand Exposure: Yes Smoking risk assessment performed?: Yes Alcohol Intake: never Drug use: Never Substance use type: does not use Caregiver/Support person: No Household members: spouse Housing: house Communication Needs: None Do you need help understanding health information?: Never Pets and animals: Yes Pets and animals: dog(s) Sexually active: Yes Do you think of yourself as: straight/heterosexual Current gender identity: female What is your relationship status?: How often do you talk on the phone with friends or family?: three or more times per week How often do you get together with friends or relatives?: three or more times per week How often do you attend nondenominational or gnosticist services?: decline to answer Do you belong to any clubs or organized social groups?: no Panel score (0-1 are the most socially isolated patients): 2 What type of physical activity do you participate in: walking Duration: 15-30 minutes/day Frequency: 3-4 times per week Odalis/Gnosticism: Mu-Ism Special odalis needs: No Seatbelt use: always Drive intox or ride w/intox stage driver: No Do you feel safe at home: Yes Do you feel safe in your relationship?: Yes History History 3 Para 3 Hx # Term Pregnancies 3 Multiple births Hx # Pregnancies Ectopic pregnancies AB induced Hx Number of Living Children 3 AB spontaneous Exam Narrative Exam Narrative: General: non-toxic, no respiratory distress, comfortable HEENT: normocephalic, atraumatic, lids and lashes normal, PERRL, EOMI, anicteric sclera, no conjunctival injection, moist oral mucosa Card: regular rate and rhythm, S1S2, no murmurs, rubs, or gallops Lungs: Decreased air exchange, clear to auscultation bilaterally. no wheezes, rales, rhonchi, or retractions Abd: soft, non-tender, non-distended, normal bowel sounds, no rebound or guarding, no peritoneal signs Musculoskeletal: full range of motion of arms and legs, no tenderness to palpation. no clubbing, cyanosis, or edema, mild pain to palpation right calf, no erythema or warmth Neurologic: appropriate for age, strength normal Psych: alert and oriented Skin: no petechiae, no lesions, warm and dry Course Vital Signs Vital signs: Vital Signs Temperature 36.8 C 02/10/23 15:58 Pulse 124 H 02/10/23 15:58 Respiratory Rate 18 02/10/23 15:58 Blood Pressure 159/108 H 02/10/23 15:58 Pulse Oximetry 99 02/10/23 15:58 Temperature 36.8 C 02/10/23 15:58 Temperature Source Skin 02/10/23 15:58 Pulse 124 H 02/10/23 15:58 Respiratory Rate 18 02/10/23 15:58 Respiratory Effort Normal, Non-Labored 02/10/23 16:45 Respiratory Depth Normal 02/10/23 16:45 Respiratory Pattern Normal 02/10/23 16:45 Blood Pressure 159/108 H 02/10/23 15:58 Blood Pressure Position Sitting 02/10/23 15:58 Pulse Oximetry 99 02/10/23 15:58 Oxygen Delivery Method Room Air 02/10/23 15:58 Oxygen Flow Rate 0 02/10/23 15:58 Pain Level 1 02/10/23 15:58 Sign Out Sign Out Data: Sign Out Comment: 47-year-old female presents for evaluation of dyspnea on exertion with diaphoresis and tachycardia. She also had new right calf pain in setting of recent hospitalization. On examination had decreased air exchange. DuoNeb ordered, but patient declined. Ultrasound right lower extremity negative. Laboratory studies including thyroid are unremarkable. Awaiting repeat troponin and CT results. Patient will likely require stress test either as outpatient or inpatient. Last updated by Beth Bruce MD at 02/10/23 19:39
[2023-02-10 17:30] LABS: Abs Immature Grans 0.02 10^3/uL (0.0-0.06); Absolute Basophil Count 0.06 10^3/uL (0.0-0.2); Absolute Eosinophil Count 0.29 10^3/uL (0.0-0.7); Absolute Lymphocyte Count 1.83 10^3/uL (1.2-3.4); Absolute Monocyte Count 0.52 10^3/uL (0.1-0.8); Absolute Neutrophil Count 5.92 10^3/uL (1.2-6.7); Basophils % 0.7; Eosinophils % 3.4; HCT 44.8 % (36.0-46.0); HGB 14.2 g/dL (11.2-15.7); Immature Grans % 0.2; Lymphocytes % 21.2; MCH 26.6 pg (27.0-33.0); MCHC 31.7 % (32.0-36.0); MCV 84 fL (80-95); MPV 9.3 fL (8.0-11.0); Neutrophils % 68.5; Platelet Count 367 10^3/uL (130-400); RBC 5.33 10^6/uL (3.93-5.22); RDW 12.6 % (11.7-14.6); RDW-SD 38.3 fL; WBC 8.64 10^3/uL (4.4-10.8)
[2023-02-10 17:44] VITALS: BP 157/85; PULSE 105; RESP 16; TEMP 36.7; O2SAT 97
[2023-02-10 17:49] LABS: ALT 53 U/L (14-59); AST 39 U/L (15-37); Albumin 3.9 g/dL (3.4-5.0); Alkaline Phosphatase 114 U/L (46-116); Anion Gap 8.7 mmol/L (3-11); BUN 18 mg/dL (7-18); Bilirubin, Total 0.2 mg/dL (0.2-1.0); CO2 28.3 mmol/L (21.0-32.0); CREATININE 0.9 mg/dL (0.55-1.02); Calcium 9.5 mg/dL (8.5-10.1); Chloride 106 mmol/L (98-107); Estimated GFR 78.37 (mL/min/1.73m2); Glucose 107 mg/dL (74-106); Magnesium 2.1 mg/dL (1.8-2.4); Sodium 143 mmol/L (136-145); Troponin I < 50 ng/L (<or=60)
[2023-02-10 18:04] LABS: TSH (W/Ref FT4) 2.28 uIU/mL (0.36-3.74)
[2023-02-10 18:07] LABS: D-Dimer 436 ng/mlFEU (<500)
[2023-02-10] MEDS: Omnipaque 350 MG/ML 100 ML BTL IJ (18:42)
[2023-02-10] MEDS: Normal Saline - Diluent 50 ML VIAL IJ (18:43)
[2023-02-10 19:06] VITALS: BP 119/88; PULSE 91; RESP 16; O2SAT 93
[2023-02-10 20:17] VITALS: BP 137/92; PULSE 78; RESP 18; TEMP 36.4; O2SAT 94
[2023-02-10 20:30] LABS: Troponin I < 50 ng/L (<or=60)
[2023-02-10 21:44] VITALS: BP 132/82; PULSE 68; RESP 16; TEMP 36.6; O2SAT 95
--- NOTE | 2023-02-10 21:58 | DI.VRAD_ITS ---
PROCEDURE INFORMATION: Exam: CTA Chest With Contrast Exam date and time: 02/10/2023 6:37 PM Age: 47 years old Clinical indication: Shortness of breath; Additional info: SOB TECHNIQUE: Imaging protocol: Computed tomographic angiography of the chest with contrast. Exam focused on the arteries. 3D rendering (Not supervised by radiologist): MIP and/or 3D reconstructed images were created by the technologist. Radiation optimization: All CT scans at this facility use at least one of these dose optimization techniques: automated exposure control; mA and/or kV adjustment per patient size (includes targeted exams where dose is matched to clinical indication); or iterative reconstruction. Contrast material: OMNI 350; Contrast volume: 100 ml; Contrast route: INTRAVENOUS (IV); COMPARISON: No relevant prior studies available. FINDINGS: Limitations: Motion artifact does moderately limit the sensitivity of this examination. Pulmonary arteries: No large pulmonary emboli. Aorta: No aortic aneurysm. No aortic dissection. Lungs: No consolidation. No masses. Mild ground-glass opacities noted throughout the bilateral lung arevalo with mild air trapping. Pleural spaces: No pneumothorax. No pleural effusion. Heart: No cardiomegaly. No pericardial effusion. Lymph nodes: No enlarged lymph nodes. Bones/joints: No acute fracture. Soft tissues: Unremarkable. IMPRESSION: 1. Slightly limited examination due to significant motion, predominantly at the lung bases. No large pulmonary embolism seen. 2. No significant consolidation. 3. Mild ground-glass opacities throughout the bilateral lung arevalo with mild air trapping, which may be secondary to small vessel/small airways disease. Clinical correlation recommended. Dictated and Authenticated by: Ann Marie Dailey MD. Ordering:GARFIELD Campos MD
--- NOTE | 2023-02-11 03:33 | W.EDPROG ---
Date of service: 02/11/23 Time of Service: 03:33 Medical Decision Making Patient was signed out to me by my colleague Dr. Louise. Please refer to HPI, physical exam, assessment and plan. At time of signout we are awaiting repeat troponin and CTA. Repeat troponin did return normal. However there was a notable delay on getting the CT read from [facility] secondary to transmission issues. Unfortunately after the repeat troponin returned, and the patient had been here quite some time she did request to be discharged. Ultrasound was negative for evidence of DVT. The remainder of her work-up was benign. Patient feels well and is requesting to go home. I had a long discussion with the patient regarding the risks and benefits of this, she understands. Excepting and understanding the risk, patient would like to go home and be contacted with the CT results. We will respect her wishes and allow for discharge. In regards to the symptoms that the patient was having, there is no current evidence of DVT, and on my review of the CT scan no evidence of PE. Patient has no chest pain at this time. Patient was taken off of her metoprolol on her last visit to [facility], and with her recurrence of episodes of elevated heart rate I do feel that this may be secondary to the removal of the metoprolol. Patient in the past did have episodes of sinus tachycardia, she had a Holter monitor in the past, which aside for an occasional extra beat showed no other significant abnormalities per patient. This is the reason why she was placed on metoprolol. I do think would be reasonable to restart the metoprolol at this time at her previous dosing. I did discuss with the patient the importance of outpatient follow-up, as well as further discussion with her primary care provider about nonemergent/urgent stress testing. Patient understands this. Patient is discharged home. CT scan came back later and shows no evidence of significant acute process. CT scan did show evidence of questionable mild groundglass opacities throughout the bilateral lung arevalo with mild air trapping, however the patient's lung sounds were clear, oxygenation excellent. Symptoms clinically inconsistent with pneumonia. Patient was discharged. Discussed red flags for which to return. I have extensively reviewed the treatment plan and discharge instructions with the patient. I have addressed all patient concerns at this time. The patient was made aware of what symptoms to monitor for that would warrant a return to the emergency department. Discussed the plan with the patient, they demonstrate verbal understanding and agreement with our assessment and plan at this time. The documentation in this chart was dictated using [employer] Master dictation software. Please excuse any dictation errors. FINDINGS: Limitations: Motion artifact does moderately limit the sensitivity of this examination. Pulmonary arteries: No large pulmonary emboli. Aorta: No aortic aneurysm. No aortic dissection. Lungs: No consolidation. No masses. Mild ground-glass opacities noted throughout the bilateral lung arevalo with mild air trapping. Pleural spaces: No pneumothorax. No pleural effusion. Heart: No cardiomegaly. No pericardial effusion. Lymph nodes: No enlarged lymph nodes. Bones/joints: No acute fracture Soft tissues: Unremarkable. IMPRESSION: 1. Slightly limited examination due to significant motion, predominantly at the lung bases. No large pulmonary embolism seen. 2. No significant consolidation. 3. Mild ground-glass opacities throughout the bilateral lung arevalo with mild air trapping, which may be secondary to small vessel/small airways disease. Clinical correlation recommended. Thank you for allowing us to participate in the care of your patient. Dictated and Authenticated by: Ann Marie Lyons MD 02/10/2023 9:57 PM Eastern Time ([place] & [place] Sign Out Sign Out Data: Sign Out Comment: 47-year-old female presents for evaluation of dyspnea on exertion with diaphoresis and tachycardia. She also had new right calf pain in setting of recent hospitalization. On examination had decreased air exchange. DuoNeb ordered, but patient declined. Ultrasound right lower extremity negative. Laboratory studies including thyroid are unremarkable. Awaiting repeat troponin and CT results. Patient will likely require stress test either as outpatient or inpatient. Last updated by Beth Louise MD at 02/10/23 19:39 Discharge Plan Disposition Patient Disposition: Home Condition: Good Discharge Details Clinical Impression: Tachycardia, Dyspnea on exertion Primary Care Provider: Jerry Huston ED Provider: Rojas Cardozo Home Meds and New Rx's Prescriptions: No Action trazodone 50 mg tablet 50 mg PO QHS PRN (Reason: sleep) Qty: 20 0RF triamcinolone acetonide 0.1 % cream 1 applic topical BID Qty: 30 0RF metoprolol succinate 25 mg tablet extended release 24 hr 25 mg PO DAILY Qty: 90 3RF omeprazole 20 mg capsule,delayed release(DR/EC) 20 mg PO BID Qty: 28 0RF Rx Instructions: Take 1 tablet by mouth in the morning, and 1 tablet by mouth in the evening sucralfate 1 gram tablet 1 g PO QACHS Qty: 56 0RF Discharge Instructions Instructions: Heart Palpitations (ED) Additional Instructions: At this time we are still waiting on your CAT scan results. I will contact you if they come back positive. Please start taking your metoprolol at your previously prescribed dose of 25 mg/day. Please follow-up closely with your primary care provider for further discussion of outpatient nonemergent stress testing. If you notice any worsening of your symptoms, or any new symptoms such as vomiting, diarrhea, fever, chills, shortness of breath, chest pain, numbness, weakness, or fainting , please return immediately to the emergency department for reevaluation. Please follow up with your primary care provider as soon as possible for reassessment and reevaluation. As always, it was a pleasure participating in your medical care today. Referrals: Jerry Huston NP [Primary Care Provider] -
--- NOTE | 2023-02-11 14:45 | NUR.NOTE ---
Nursing Note:Accessed chart to determine orders for EKG and to determine whether or not one needs to be cancelled.
--- NOTE | 2023-02-14 17:40 | NUR.NOTE ---
Nursing Note: Accessed pt chart to determine EKG orders.
--- NOTE | 2023-02-16 09:02 | NUR.NOTE ---
Accessed pt chart to determine about EKG done during downtime. Nursing Note:
== END 2023-02-10 21:50 | disposition home or self-care (01) ==
PROVIDERS: Emergency Medicine Emergency Medical Services; Emergency Provider Student in an Organized Health Care Education/Training Program; PCP Nurse Practitioner Family
DX: M79.604 Pain in right leg; M79.89 Other specified soft tissue disorders; R00.0 Tachycardia, unspecified; R06.00 Dyspnea, unspecified
CPT/HCPCS: 71275; 80053; 93005; 99285; 83735; 84443; 84484; 85025; 85379; 93010; 93971; J3490

== ENCOUNTER 2023-02-24 08:54 | Outpatient (CLI) | payer OTHER, SELFPAY ==
[2023-02-24] MEDS: Levalbuterol HFA 15 GM INH IH (14:22)
[2023-02-24] MEDS: Inhaler, Assist Device 1 EACH MC (14:23)
--- NOTE | 2023-03-01 07:13 | W.PFT ---
Date of service: 02/24/23 Time of Service: 13:06 Pulmonary Function Test Result Indications: Dyspnea Interpretation Spirometry: There is no airflow limitation. There is no bronchodilator response. Lung Volumes: Normal lung volumes Diffusion Capacity: Normal diffusion Airway Pressure: Normal airways resistance Impression Normal pulmonary function testing Clinical Correlation therefore is recommended.
== END 2023-02-24 08:55 | disposition home or self-care (01) ==
LOC: RT 08:55
PROVIDERS: PCP Nurse Practitioner Family; Visit Provider Nurse Practitioner Family
DX: R06.09 Other forms of dyspnea (principal)
CPT/HCPCS: 94060; 94726; 94729

== ENCOUNTER → 2023-02-28 03:03 | Outpatient (CLI) | payer OTHER, SELFPAY ==
--- NOTE | 2023-02-28 08:22 | DI.MAMMO_ITS ---
Exam(s) MAMMO SCREENING EXAM: MAMMO SCREENING CLINICAL HISTORY: screening.Z12.39. TECHNIQUE: Bilateral full field digital CC and MLO mammographic images were obtained with 3D tomosyn thesis and utilizing computer aided detection (CAD). COMPARISON: None. This is a baseline mammogram on this 47-year-old patient FINDINGS: There are no CAD designations. There are no significant radiograph findings in the right breast. In the left breast there is a noncalcified 4 x 3 mm nodule located 3 cm in from the nipple on the CC view. No other left breast findings. No malignant-appearing microcalcification groups in this region or elsewhere in left breast. There is no significant architectural distortion nor skin thickening-retraction. IMPRESSION: 1. No radiographic evidence of malignancy in the right breast. 2. There is a 4 x 3 mm left breast nodules described above. Spot compression view and ultrasound rec ommended BI-RADS Category 0 - Assessment Incomplete: Need additional imaging evaluation Breast Density - Category B - Scattered areas of fibroglandular density Breast density Category C or D implies that the patient has dense breast tissue. Dense breast tissue can make it harder to find cancer on a mammogram. Dense breast tissue is also associated with an incr eased risk of breast cancer. This information about the result of the mammogram report was provided to the patient to raise their awareness. Use this report when you speak with the patient about their risks for breast cancer, which includes their family history. At that time, you may recommend additional screening tests (Ultrasoun d or MRI) as these tests may add significant information. A negative radiographic report should not delay biopsy if a dominant or clinically suspicious mass is present. Up to ten percent of cancers are not identified on mammography. A negative report may reinforce clinical impression. Adenosis and dense breasts may obscure an underlying neoplasm. False positive reports average 6 to 10%. Patient will receive a letter notifying them of these results.
== END ==
PROVIDERS: PCP Nurse Practitioner Family; Visit Provider Obstetrics & Gynecology
DX: Z12.31 Encounter for screening mammogram for malignant neoplasm of breast (principal)
CPT/HCPCS: 77063; 77067

== ENCOUNTER → 2023-03-03 02:15 | Outpatient (CLI) | payer OTHER, SELFPAY ==
--- NOTE | 2023-03-03 06:15 | ETT_ITS ---
APPROVED REPORT Exam: Exercise Treadmill Patient Location: Out-Patient Room/Bed: Stress Nurse: Hanane Moreno RN Ordering Provider:BYRON VIDA, Contact Number: [phone] BMI: 40.09 Baseline Rhythm: Sinus Rhythm Indications: Chest tightness with radiation, HALL Medical History Medical History: Chest tightness, HTN, HLD, obesity, anxiety, tachycardia, HALL, hypoxia, gastric ulce r, suspected sleep apnea. Cardiac Medications: Metoprolol succinate, omeprazole, budesonide-formoterol inhaler Allergies: Cephalexin, metroniadazole, penicillins, sulfa Cardiac Risk Factors: Family hx, HTN, HLD, obesity Previous Cardiac Procedures: None Pretest Chest Pain Characteristics: None Exercise History: None Physical Disabilities: None Lung Sounds: Clear to auscultation Heart Sounds: Regular Stress Test Details Test: Exercise stress testing was performed using a Rex protocol. Rest Stress HR Resting HR Supine: 81 bpm Max Heart Rate (APMHR): 171 bpm Resting HR Standin bpm Target HR (85% APMHR): 145 bpm Max HR Achieved: 158 bpm % of APMHR: 92 Recovery HR: 87 bpm HR response to stress: Normal HR response to stress BP Resting BP Supine: 132/92 mmHg Resting BP Standin/86 mmHg Max BP: 180/96 mmHg Recovery BP: 138/86 mmHg BP response to stress: Normal blood pressure response to stress. ECG Resting ECG: Sinus Rhythm Ectopy: None Stress ECG: Sinus Tachycardia ST Change: No significant ST segment changes noted Arrhythmia: None Recovery ECG: Sinus Rhythm Recovery ST Change: No significant ST segment changes noted Recovery Arrhythmia: None Clinical Reason for Termination: Target HR Achieved, Fatigue, Dyspnea Stress Symptoms: Dyspnea, General Fatigue Exercise duration: 07 min05 sec Highest Stage Reached: Stage 2: 2.5 mph at 12% grade. Exercise capacity: 7.05 METs Angina Score: Non-Limiting Gomez Treadmill Score: 0.8 Rate Pressure Product: [id number] Stress ECG Conclusion 1. Resting electrocardiogram was within normal limits 2. Patient exercised on the Rex protocol and completed a workload of 7.05 METS stopping due to fati renuka and shortness of breath 3. Normal heart rate and blood pressure response to exercise. Patient achieved 92% of predicted hear t rate for age 4. There was no electrocardiographic evidence of myocardial ischemia 5. There were no dysrhythmias Gomez Treadmill Score is 0.8 which is Moderate risk. Stress Test Summary STAGE Time (mins) Speed (mph) Grade (%) HR BP SpO2 SYMPTOMS METS Supine 81 132/92 95 Standing 80 122/86 95 1 3 1.7 10 138 97 3/10 chest discomfort 4.5 2 6 2.5 12 158 Mod dyspnea, CP resolved 7 1 min recovery 126 180/96 98 Mild dyspnea 3 min recovery 94 168/86 98 6 min recovery 87 138/86 96 All symptoms resolved. Unable to auscultate blood pressure during exercise.
== END ==
PROVIDERS: PCP Nurse Practitioner Family; Visit Provider Student in an Organized Health Care Education/Training Program
DX: R06.09 Other forms of dyspnea (principal); R07.89 Other chest pain
CPT/HCPCS: 93017

== ENCOUNTER → 2023-03-07 04:00 | Outpatient (CLI) | payer OTHER, SELFPAY ==
--- NOTE | 2023-03-07 | DI.MAMMO_ITS ---
Exam(s) MG MAMMO SCREEN CALL BACK UNI US BREAST LT COMPLETE EXAM: MG MAMMO SCREEN CALL BACK UNI and U/S breast LT complete CLINICAL HISTORY: F/U MAMMO, LT BREAST NODULE. TECHNIQUE: Craniocaudal and mediolateral oblique Full Field Digital Mammography views of the left br east with Computer Aided Diagnosis followed by Tomosynthesis and left breast ultrasound. COMPARISON: Comparison is made with baseline examination. FINDINGS: Mammography/Tomosynthesis: Masses/Architectural Distortion: The well-circumscribed nodule in the retroareolar region of the left breast is again seen. It measures 4 mm. No associated microcalcifications are seen. No areas of a rchitectural distortion are seen. Microcalcifictions: No suspicious pleomorphic-type are seen. Skin Thickening/Nipple Retraction: None. Complete left breast US: Echotexture: Normal appearance of the glandular tissue. Shadowing: No suspicious foci. Cyst: None. Solid lesions: None seen. Ductal dilation: None. IMPRESSION: 1. No definite evidence of malignancy is noted. Its appearance suggests that of a benign process such as an intraparenchymal lymph node. 2. A six-month follow-up left mammogram and ultrasound is requested for re-evaluation. 3. The findings were discussed with the patient on the date of the examination. BI-RADS Category 3 - 6 month - Probably Benign Finding: Recommend follow-up imaging in 6 months Breast Density - Category B - Scattered areas of fibroglandular density Breast density Category C or D implies that the patient has dense breast tissue. Dense breast tissue can make it harder to find cancer on a mammogram. Dense breast tissue is also associated with an incr eased risk of breast cancer. This information about the result of the mammogram report was provided to the patient to raise their awareness. Use this report when you speak with the patient about their risks for breast cancer, which includes their family history. At that time, you may recommend additional screening tests (Ultrasoun d or MRI) as these tests may add significant information. A negative radiographic report should not delay biopsy if a dominant or clinically suspicious mass is present. Up to ten percent of cancers are not identified on mammography. A negative report may reinforce clinical impression. Adenosis and dense breasts may obscure an underlying neoplasm. False positive reports average 6 to 10%. Patient will receive a letter notifying them of these results.
== END ==
PROVIDERS: PCP Nurse Practitioner Family; Visit Provider Obstetrics & Gynecology
DX: Z12.31 Encounter for screening mammogram for malignant neoplasm of breast (principal); R92.8 Other abnormal and inconclusive findings on diagnostic imaging of breast
CPT/HCPCS: 76642; 77063; 77067

== ENCOUNTER 2023-03-10 04:20 | Outpatient (CLI) | payer OTHER, SELFPAY ==
[2023-03-10] MEDS: Albuterol HFA 18 GM 200 PUFF INH IH (14:50)
[2023-03-10] MEDS: Methacholine 100 MG VIAL IH (14:51)
[2023-03-10] MEDS: Inhaler, Assist Device 1 EACH MC (14:51)
== END 2023-03-10 04:21 | disposition home or self-care (01) ==
LOC: RT 04:20
PROVIDERS: PCP Nurse Practitioner Family; Visit Provider Student in an Organized Health Care Education/Training Program
DX: R06.00 Dyspnea, unspecified (principal)
CPT/HCPCS: 94060; 94070; J7674

== ENCOUNTER 2023-03-17 08:19 | Day surgery (SDC) | payer OTHER, SELFPAY ==
--- NOTE | 2023-03-16 18:31 | W.ANESPRE ---
General Info Date of Service Date Performed: 03/17/23 Height: 5 ft 5 in Weight: 111.13 kg Body Mass Index (BMI): 40.7 Surgical Procedure: Operation Date: 03/17/23 09:50 Proposed Procedure Side Surgeon p Colonoscopy/Gastroscopy Branden Quintana MD Meds Allergies and Home Medications Allergies Allergy/AdvReac Type Severity Reaction Status Date / Time cephalexin [From Keflex] Allergy Severe Other (See Unverified 03/17/23 08:45 Comment) metronidazole [From Flagyl] Allergy Severe Other (See Unverified 03/17/23 08:45 Comment) Penicillins Allergy Severe Skin Rash Unverified 03/17/23 08:45 Sulfa (Sulfonamide AdvReac Severe colitis Unverified 03/17/23 08:45 Antibiotics) Home Medication Medication Instructions Recorded trazodone 50 mg tablet 50 mg PO QHS PRN sleep #20 tabs 12/07/22 triamcinolone acetonide 0.1 % 1 applic topical BID #30 grams 12/07/22 topical cream metoprolol succinate 25 mg 25 mg PO DAILY #90 tabs 02/23/23 tablet,extended release 24 hr sucralfate 1 gram tablet 1 g PO QACHS #56 tabs 02/23/23 budesonide-formoterol HFA 80 2 puff inhalation BID #10.2 grams 02/28/23 mcg-4.5 mcg/actuation aerosol inhaler (Symbicort) famotidine 20 mg tablet (Pepcid AC) 20 mg PO DAILY #14 tabs 03/09/23 Current Visit Medications: Current Medications Generic Name Dose Route Start Last Admin Trade Name Saeedq PRN Reason Stop Dose Admin Ringer's Solution 1,000 mls @ 80 mls/hr 03/17/23 06:00 IV 04/15/23 23:59 INFUSION EFRAÍN IV Miscellaneous Supplies 1 each 03/17/23 06:00 Iv Access IV 04/15/23 23:59 DIRECTED EFRAÍN Sodium Chloride 0 ml 03/17/23 06:00 Normal Saline Flush 10 Ml Syr IV 04/15/23 23:59 PRN PRN Sodium Chloride 0 ml 03/17/23 06:00 Normal Saline 10 Ml Vial IJ 04/15/23 23:59 DIRECTED PRN Sterile Water 0 ml 03/17/23 06:00 Water,Injection,Sterile 10 Ml Vial IJ 04/15/23 23:59 DIRECTED PRN PFSH Active Problems Active Problems: Problem Status Onset Code Abnormality of left breast on screening mammography R92.8 Chest tightness R07.89 Essential hypertension I10 Obesity E66.9 Hyperlipidemia E78.5 Anxiety F41.9 Well woman exam with routine gynecological exam Z01.419 Epigastric pain R10.13 Gastric ulcer K25.9 Hypoxia R09.02 Medical History Medical History Suspected sleep apnea Tachycardia Surgical History Surgical History History of esophagogastroduodenoscopy S/P appendectomy Per pt. states it burst when she was 3 years old but it was never removed. Tobacco Smoking/Tobacco Use Status: Never Passive smoking exposure: Yes Second hand exposure: Yes Alcohol Alcohol Intake: never Substance Use Substance use: Never Substance use type: does not use Prental History History 3 Para 3 Hx # Term Pregnancies 3 Multiple births Hx # Pregnancies Ectopic pregnancies AB induced Hx Number of Living Children 3 AB spontaneous Vital Signs and Lab Results Lab Results Blood Type / Crossmatch: No Data to Display Complete Blood Count: No Data to Display Complete Metabolic Panel: No Data to Display Liver Function Panel: No Data to Display Coagulation Panel: No Data to Display Cardiac Panel: No Data to Display Arterial Blood Gas: No Data to Display Venous Blood Gas: No Data to Display Pancreas Panel: No Data to Display Thyroid Panel: No Data to Display Infectious Disease: No Data to Display Blood Cultures: No Data to Display Toxicology Panel: No Data to Display Panel: No Data to Display Imaging and Studies Imaging and Studies Study information below may be from another EMR and interpreted by another provider. Please see original notes in EMR for more complete details. EKG Summary: 02/06: sinus tach, LVH Stress Test Summary: 03/09: 7 METS, no ECG changes assoc with ischemia. Echocardiogram Summary: 02/06: LVEF 60%, trace MR, mild TR. RVSP 36 mmhg. Pulmonary Function Summary: 03/09: normal spirometry, negative methacholine challenge. Anesthesia Assessment and Plan Anesthesia History Personal History: No History of Anesthesia Complications Family History: No Family History of Anesthesia Complications Exercise Tolerance Exercise Tolerance: Metabolic Equivalents>4 Cardiac & Pulmonary Exam Cardiac Exam: Normal S1/S2 Heart Sounds Pulmonary Exam: Clear Bilateral Breath Sounds Implantable Cardiac Device Does patient have a Pacemaker or an ICD?: No Airway Exam Known Difficult Airway: No Mallampati Class: 1 Mouth Opening: Normal (> 3cm) Thyromental Distance: Greater than 3 cm Neck Range of Motion: Full ROM Neck Circumference: Normal Teeth Condition: Normal Dentition ASA Classification ASA Score: ASA 3 Emergency Case?: No NPO Status NPO Status: NPO Clears >2 hours, Solids >8 hours Status Status: Negative HCG Anesthesia Plan Resuscitation Status: Full Code Anesthesia Technique: General Anesthesia Airway Planned: Natural Airway Monitors Used: Standard Monitors Preoperative Comments:: 47 yo female for EGD/colo. Sig PMHx: HTN (metoprolol), GERD/ulcer, anxiety, never smoker/EtOH. Chest tightness (negative stress, echo, ekg)
--- NOTE | 2023-03-16 22:41 | PDOC.DSDIS_ITS ---
Date of service: 03/17/23 Time of Service: 10:23 Discharge Plan Disposition Patient Disposition: Home Condition: Good Discharge Details Reason For Visit: EGD and colonoscopy Attending Provider: Branden Quintana Primary Care Provider: Jerry Huston Home Meds and New Rx's Prescriptions: Continued trazodone 50 mg tablet 50 mg PO QHS PRN (Reason: sleep) Qty: 20 0RF triamcinolone acetonide 0.1 % cream 1 applic topical BID Qty: 30 0RF budesonide-formoterol [Symbicort] 80-4.5 mcg/actuation HFA aerosol inhaler 2 puff inhalation BID Qty: 10.2 12RF Rx Instructions: Take 1 puff bid and as needed for dyspnea, chest tightness, wheeze metoprolol succinate 25 mg tablet extended release 24 hr 25 mg PO DAILY Qty: 90 3RF sucralfate 1 gram tablet 1 g PO QACHS Qty: 56 0RF famotidine [Pepcid AC] 20 mg tablet 20 mg PO DAILY Qty: 14 0RF Discharge Instructions Additional Instructions: Kiera, we were able to complete your EGD and colonoscopy today without any difficulty at all. The area of your previous stomach ulcers appears to be well- healed. I do not see any active signs of inflammation or bleeding. Like we talked about beforehand, I did perform some random biopsies of the stomach to make sure there is not an underlying problem that is driving the production of the ulcers. With regards to medication in the future, I think it is fine to stop the sucralfate. Either Pepcid or omeprazole would be reasonable to help control your symptoms. If the Pepcid has not been working, then I would go back to using omeprazole. I think it is fine to use an [id number] brand. And I would start with taking 20 mg as needed, or once daily if you find that your symptoms are very frequent. If this does not get the symptoms under control, we could escalate up to 20 mg 2 times a day like we used before. With regards to the colonoscopy, the quality of the prep was fantastic. I did find 1 small polyp. I removed it completely. It will take about a week or so for them to send me the results regarding the nature of the polyp, I use that information to inform you regarding the timing of your next colonoscopy. 1. If tolerated, consume a soft, low fiber diet for 1-2 days. 2[address] Do not drive, drink alcohol, operate machinery, make critical decisions, or do activities that require coordination or balance for 24 hours. 3. Because air was put into your colon during the procedure, expelling air from your rectum (passing gas or farting) is normal. 4. You may not have a bowel movement for 1-3 days because of the colonoscopy prep. This is normal. 5. You may experience a sore throat for 24 to 48 hours. You may use throat lozenges or gargle with warm salt water to relieve the discomfort. 6. Because air was put into your stomach during the procedure, you may experience some belching. 7. Go directly to the emergency room if you notice any of the following: Develop chills (warm to touch), or if you have a thermometer and your temperature is above 101 Difficulty breathing or difficultly swallowing Persistent vomiting Severe abdominal pain, other than gas cramps Severe chest pain Black, tarry stools Any bleeding ? exceeding one tablespoon 8. Call your physician if the site where your intravenous was started becomes red, swollen, painful, and warm to touch. 9. Your physician has reviewed your pre-procedure medications. Please continue to take those medications as previously ordered. You will be given specific information/education regarding any changes to your medications before leaving. Activity:: Activity as Tolerated Diet:: As Tolerated Discharge Orders Discharge Orders: Discharge Order (Routine); Ordered 03/16/23 Ordered By: Branden Quintana DS: Diagnosis Discharge Diagnosis (1) Gastric ulcer: Status: Acute Asessment and Plan: Healing gastric ulcer; follow-up on colonoscopy polypectomy results
--- NOTE | 2023-03-16 22:42 | ENDO_ITS ---
Date of service: 03/17/23 Time of Service: 10:25 Endoscopy Report DATE OF PROCEDURE: 03/17/23 PRE-OP DIAGNOSIS: Peptic ulcer disease and screening colonoscopy POST-OP DIAGNOSIS: other (Healed peptic ulcer; colon polyp) PROCEDURE: EGD with biopsies and colonoscopy with polypectomy SURGEON: Branden Quintana ANESTHESIA TYPE: General:No Airway ESTIMATED BLOOD LOSS: 15 PATHOLOGY: other (And biopsies of duodenum, gastric antrum and body, GE junction; colon polyp at 25 cm from the anus) COMPLICATIONS: None DISPOSITION: same day INDICATIONS: Kiera is a 47-year-old woman who was previously experiencing midepigastric abdominal pain. I performed EGD and demonstrated peptic ulcer disease. She was treated with proton pump inhibition therapy and sucralfate. She is here for surveillance EGD to ensure resolution of her gastric ulcer. She is also due for screening colonoscopy PREP: Miralax/Dulcolax PROCEDURE START TIME: 09:41 PROCEDURE END TIME: 10:05 COLONOSCOPY RETRACTION TIME: 10 FINDINGS: Normal-appearing stomach, with healed gastric ulcers. GE junction around 35 cm from the incisors; colon polyp at 25 cm. PROCEDURE DESCRIPTION: After the initiation of monitored anesthetic care, and with the assistance of a bite block, I advanced a standard gastroscope through the mouth past the hypopharynx and into the esophagus.? Under the direct vision of the scope, I advanced down the esophagus into the stomach.? The Z-line was mostly normal- appearing, with less than 1 cm of irregularity, and it measured 35 cm from the incisors. I performed a cold forcep biopsy at the uppermost portion of the Z- line irregularity. Next, I advanced the camera down into the stomach proper. I insufflated the stomach until the gastric rugae were obliterated. Grossly, the stomach appeared normal. I performed retroflexion. I did not see any evidence of pathology in the gastric cardia or the main portion of the gastric body. I then turned my attention back antegrade, down around the incisura angularis. There was a small amount of scar tissue in the area that appeared to be the old gastric ulcer. Looked well-healed. There were no concerning features for malignancy. I advanced the camera down through the pylorus into the duodenum, which was also normal-appearing. I then performed random biopsies of the duodenal mucosa, as well as the gastric antrum and gastric body in order to rule out other forms of gastritis. Biopsies were done with cold forceps, and there was minimal bleeding. I then desufflated the stomach and brought the camera back out along the length of the esophagus which all appeared normal. We then repositioned Kiera into the left lateral decubitus position. I began by performing an external anorectal exam.? Perineum and skin were normal, as was the anal verge.? There was no evidence of external hemorrhoids.? Next, I performed a digital rectal exam.? I did not appreciate any abnormal findings.? Next, I advanced a colonoscope into the rectal vault.? I performed retroflexion.? This appeared normal.? Using insufflation, I then advanced the colonoscope beyond the rectal folds and into the sigmoid colon before advancing towards the cecum.? The quality of the prep was excellent.? The scope was noted to be in the cecum by identification of the ileocecal valve and appendiceal orifice.? I then began withdrawing the colonoscope using repeated irrigation as necessary for full evaluation of the colonic mucosa. Around 25 cm from the anal verge I identified a 0.25 cm polyp. ?It appeared sessile in character. ?I was able to remove this with a cold forcep polypectomy. ?I examined the site, and there was minimal bleeding. ?Once this was completed, I continued to withdraw the scope and examine the remainder of the colonic mucosa.?Once the scope was withdrawn to the level of the rectum, great care was taken to examine portions of the rectal folds.? Finally, the scope was withdrawn and the patient was brought to the same-day surgery recovery unit as the anesthetic wore off. ?The findings and instructions were shared with the patient prior to discharge.
[2023-03-17 08:28] VITALS: BP 142/94; PULSE 80; RESP 17; TEMP 36.3; O2SAT 97
[2023-03-17] MEDS: Lactated Ringers 1,000 ML 80 ML IV (08:49)
--- NOTE | 2023-03-17 09:42 | STOM_PTH ---
PATIENT: Kiera Prabhakar LOC: [facility] U#:[id number] AGE/SX: 47/F ROOM: RE03/17/[address]: Branden Quintana MD : [id number] BED: DIS: 03/17/2023 SPEC #: [id number] RECD: 03/17/23 12:44 STATUS: WILLIAM RE #: [id number] KRISHNA: 03/17/23 09:[address]: Branden Quintana DEPT: Surgical Specimen RECD BY: Licha Hernandez ENTERED: 03/17/23 12:48 SP TYPE: STOMACH OTHR DR: Jerry Nicole DNP Tissues: 1 - BIOPSY BOWEL 2 - STOMACH BIOPSY 3 - STOMACH BIOPSY G - ESOPHAGUS BIOPSY 4 - BIOPSY BOWEL Procedures: GROSS AND MICRO LEVEL 4 SPECIAL STAIN 1 Comments: [id number]
[2023-03-17 09:53] VITALS: BMI 40.7
[2023-03-17 10:14] VITALS: BP 118/81; PULSE 72; RESP 16; TEMP 36.3; O2SAT 95
[2023-03-17 10:46] VITALS: BP 117/78; PULSE 62; RESP 16; TEMP 36.5; O2SAT 95
--- NOTE | 2023-03-17 14:24 | W.ANESPOSTOP ---
Postoperative Evaluation Date, Time and Location Date Performed: 03/17/23 Time Performed: 10:50 Patient Location: Day Surgery Unit Vital Signs Most Recent Imported Vital Signs: Most Recent Vital Signs Temp Pulse Resp BP Pulse Ox 36.5 C 62 16 117/78 95 03/17/23 10:46 03/17/23 10:46 03/17/23 10:46 03/17/23 10:46 03/17/23 10:46 Pain Score Most Recent Pain Score: Most Recent Pain Score Pain Level 0 03/17/23 10:46 Assessment Mental Status: Awake (Alert & Oriented to Patient Baseline) Airway and Respiratory Function: Patent airway with normal (patient baseline) respiratory exam Cardiovascular Function: Hemodynamically Stable Hydration Status: Adequately Hydrated Nausea & Vomiting: No Nausea or Vomiting Pain: Pt. Denies Any Pain Peripheral Nerve Block: Patient did not receive a nerve block
== END 2023-03-17 11:38 | disposition home or self-care (01) ==
PROVIDERS: PCP Nurse Practitioner Family; Visit Provider Surgery
PROC: (CPT 45380; principal; 2023-03-17 09:45)
DX: Z09 Encounter for follow-up examination after completed treatment for conditions other than malignant neoplasm (principal); Z12.11 Encounter for screening for malignant neoplasm of colon; K63.5 Polyp of colon; K22.9 Disease of esophagus, unspecified; Z87.11 Personal history of peptic ulcer disease
CPT/HCPCS: 45380; 43239; 81025; 88305; 88312

== ENCOUNTER 2023-04-27 09:49 | Outpatient (CLI) | payer OTHER, SELFPAY | END 2023-04-27 09:50 | disposition home or self-care (01) | LOC: CARDOPNVT 09:49 | PROVIDERS: PCP Nurse Practitioner Family; Visit Provider Nurse Practitioner Family | DX: R00.0 Tachycardia, unspecified (principal); R07.89 Other chest pain | CPT/HCPCS: 93246 ==

== ENCOUNTER 2023-05-12 12:24 | Outpatient (REF) | payer OTHER, SELFPAY ==
[2023-05-12 12:55] LABS: Source Nasal/Nares
[2023-05-12 13:29] LABS: COVID-19 PCR Negative (Negative)
== END 2023-05-12 12:25 | disposition home or self-care (01) ==
LOC: LBN 12:24
PROVIDERS: PCP Nurse Practitioner Family; Visit Provider Obstetrics & Gynecology
DX: Z11.52 Encounter for screening for COVID-19 (principal)
CPT/HCPCS: 87635

== ENCOUNTER 2023-05-19 07:22 | Outpatient (CLI) | payer OTHER, SELFPAY ==
--- NOTE | 2023-05-19 09:16 | W.CARDEVENT ---
Date of service: 05/19/23 Time of Service: 09:16 Cardiac Event Recorder Referring Provider:: Jerry Daniel Indications:: Chest pain and tachycardia Cardiac Event Note: This is a cardiac event monitor. Patient was monitored for 10 days and 5 hours Rhythm throughout was sinus. Average heart rate was 78. Minimum was 48, maximum 127 There were rare isolated premature ventricular contractions. There was 1 ventricular triplet contractions artifact There were very rare isolated atrial premature beats There was no atrial fibrillation, no high-grade AV block, no pauses greater than 3 seconds Episodes labeled SVT were in fact sinus tachycardia in the 120s Patient symptoms were reported. These correlated to sinus rhythm, rates in the 70s and 80s
== END 2023-05-19 07:23 | disposition home or self-care (01) ==
LOC: CARDOPNVT 07:22
PROVIDERS: PCP Nurse Practitioner Family; Visit Provider Internal Medicine Cardiovascular Disease
DX: R07.9 Chest pain, unspecified (principal); R00.0 Tachycardia, unspecified

== ENCOUNTER 2023-05-31 08:27 | Outpatient (CLI) | payer OTHER, SELFPAY ==
--- NOTE | 2023-05-31 08:15 | RT.EKG_ITS ---
APPROVED REPORT Exam: Resting ECG Reason for Exam: tachycardia Patient Location: O HR:68 bpm ECG Measurements Heart Rate 68 AXIS ID 150 P -7 QRSd 85 QRS -8 QT 394 T 2 QTc 420 Conclusion Sinus rhythm...normal P axis, V-rate 50- 99 Normal Electrocardiogram Baseline wander in lead(s) I,aVR,V1,V2,V6
== END 2023-05-31 08:28 | disposition home or self-care (01) ==
LOC: DI.CARD 08:28
PROVIDERS: PCP Nurse Practitioner Family; Visit Provider Internal Medicine Cardiovascular Disease
DX: R00.0 Tachycardia, unspecified (principal)
CPT/HCPCS: 93010

== ENCOUNTER → 2023-06-15 02:48 | Outpatient (CLI) | payer OTHER, SELFPAY ==
--- NOTE | 2023-06-15 07:15 | DI.CT_ITS ---
Exam(s) CT CHEST WO EXAM: CT CHEST WO CLINICAL HISTORY: follow up ground glass opacities,ABNL CHEST CT.R93.89. TECHNIQUE: Imaging protocol: Axial computed tomography images were obtained and coronal and sagittal reformatted images were created and reviewed. COMPARISON: CT CT CHEST PE CTA from 02/10/2023 FINDINGS: The examination is limited due to patient motion artifact. Tracheobronchial tree: Patent where visualized. Pulmonary parenchyma: No consolidation or dominant measurable mass. There is mild linear scarring in the right lung apex. Mediastinum and Farnaz: No dominant adenopathy or fluid collection. The esophagus is unremarkable. Thyroid gland: Unremarkable. Pleura: No effusion or pneumothorax. Heart: The heart is not dilated. No coronary artery calcifications are seen. No pericardial effusion. Aorta: Thoracic aorta non-dilated. Mild atherosclerosis. Upper abdomen: There is fatty infiltration of the liver. Lymph nodes: Within normal limits. Soft tissues: Unremarkable. Bones:Within normal limits for the patient's age. IMPRESSION: No acute pulmonary process. Resolution of the pulmonary infiltrates. RADIATION DOSE DELIVERED: Total DLP Total DLP DATA REPOSITORY: All CT scans at this facility are submitted to the National Radiology Data Registry (NRDR) Dose Index Registry (DIR) with the [employer] (ACR). RADIATION OPTIMIZATION: All CT scans at this facility use at least one of these dose optimization te chniques: automated exposure control; mA and/or kV adjustment per patient size (includes targeted exa ms where dose is matched to clinical indication); or iterative reconstruction.
== END ==
PROVIDERS: PCP Nurse Practitioner Family; Visit Provider Physician Assistant Surgical
DX: R93.89 Abnormal findings on diagnostic imaging of other specified body structures (principal); R07.89 Other chest pain
CPT/HCPCS: 71250; 87070; 87205

== ENCOUNTER 2023-06-15 12:38 | Outpatient (REF) | payer OTHER, SELFPAY | END 2023-06-15 12:39 | disposition home or self-care (01) | LOC: LBN 12:38 | PROVIDERS: Physician Assistant Surgical; PCP Nurse Practitioner Family; Visit Provider Student in an Organized Health Care Education/Training Program | DX: R07.89 Other chest pain (principal) | CPT/HCPCS: 82306 ==

== ENCOUNTER → 2023-09-14 02:18 | Outpatient (CLI) | payer OTHER, SELFPAY ==
--- NOTE | 2023-09-14 | DI.MAMMO_ITS ---
Exam(s) MAMMO DIAGNOSTIC UNI EXAM: MAMMO DIAGNOSTIC UNI CLINICAL HISTORY: 6 month follow up ABNORMALITY LT BREAST,R92.8. TECHNIQUE: Craniocaudal and mediolateral oblique Full Field Digital Mammography views of the left br east with Computer Aided Diagnosis followed by Tomosynthesis. COMPARISON: Comparison is made with prior examinations. FINDINGS: Mammography/Tomosynthesis: Masses/Architectural Distortion: There has been no change in appearance of the 4 mm nodule in the ret roareolar region of the left breast. No new nodules are seen. No areas of architectural distortion are present. Microcalcifictions: No suspicious pleomorphic-type are seen. Skin Thickening/Nipple Retraction: None. IMPRESSION: 1. No evidence of malignancy is noted. 2. A six-month follow-up left mammogram is requested for re-evaluation. At that time the patient prashant uld have there yearly right mammogram. 3. The findings were discussed with the patient on the date of the examination. BI-RADS Category 3 - 6 month - Probably Benign Finding: Recommend follow-up imaging in 6 months Breast Density - Category B - Scattered areas of fibroglandular density Breast density Category C or D implies that the patient has dense breast tissue. Dense breast tissue can make it harder to find cancer on a mammogram. Dense breast tissue is also associated with an incr eased risk of breast cancer. This information about the result of the mammogram report was provided to the patient to raise their awareness. Use this report when you speak with the patient about their risks for breast cancer, which includes their family history. At that time, you may recommend additional screening tests (Ultrasoun d or MRI) as these tests may add significant information. A negative radiographic report should not delay biopsy if a dominant or clinically suspicious mass is present. Up to ten percent of cancers are not identified on mammography. A negative report may reinforce clinical impression. Adenosis and dense breasts may obscure an underlying neoplasm. False positive reports average 6 to 10%. Patient will receive a letter notifying them of these results.
== END ==
PROVIDERS: PCP Nurse Practitioner Family; Visit Provider Obstetrics & Gynecology
DX: Z12.31 Encounter for screening mammogram for malignant neoplasm of breast (principal); R92.8 Other abnormal and inconclusive findings on diagnostic imaging of breast
CPT/HCPCS: 77061; 77065; G0279

== ENCOUNTER 2023-12-13 15:04 | Outpatient (REF) | payer OTHER, SELFPAY ==
[2023-12-13 21:49] LABS: ALT 20 U/L (14-59); AST 19 U/L (15-37); Albumin 3.3 g/dL (3.4-5.0); Alkaline Phosphatase 141 U/L (46-116); Anion Gap 8.8 mmol/L (3-11); BUN 16 mg/dL (7-18); Bilirubin, Total 0.1 mg/dL (0.2-1.0); CO2 26.2 mmol/L (21.0-32.0); Calcium 8.9 mg/dL (8.5-10.1); Calculated LDL 137 mg/dL (<100); Chloride 108 mmol/L (98-107); Cholesterol 223 mg/dL (<200); Estimated GFR 68.63 (mL/min/1.73m2); Glucose 113 mg/dL (74-106); HDL Cholesterol 37 mg/dL (40-60); Potassium 4.4 mmol/L (3.5-5.1); Sodium 143 mmol/L (136-145); TSH (W/Ref FT4) 2.43 uIU/mL (0.36-3.74); Total Protein 6.8 g/dL (6.4-8.2); Triglyceride 246 mg/dL (<150)
[2023-12-13 21:51] LABS: Hemoglobin A1C 6.1 % (<5.7)
[2023-12-13 22:54] LABS: Vitamin D 25 Total 24.2 ng/mL (30-100)
== END 2023-12-13 15:05 | disposition home or self-care (01) ==
LOC: LBN 15:04
PROVIDERS: PCP Nurse Practitioner Family; Visit Provider Nurse Practitioner Family
DX: E55.9 Vitamin D deficiency, unspecified (principal); Z51.81 Encounter for therapeutic drug level monitoring; E78.5 Hyperlipidemia, unspecified; R73.9 Hyperglycemia, unspecified
CPT/HCPCS: 80053; 80061; 82306; 83036; 84443

== ENCOUNTER 2024-03-05 02:59 | Outpatient (CLI) | payer OTHER, SELFPAY ==
--- NOTE | 2024-03-05 06:45 | DI.MAMMO_ITS ---
Exam(s) MAMMO DIAGNOSTIC BI EXAM: MAMMO DIAGNOSTIC BI CLINICAL HISTORY: 6 mo f/u lt,r92.8,yearly screening rt,lt breast nodule TECHNIQUE: Mammograms were interpreted according to the usual protocol including computer analysis w [employer] CAD system, tomosynthesis and C-view imaging. COMPARISON: 2022 and 2023 FINDINGS: The breasts are composed of mainly fatty density , Breast Density category A. No suspicious masses or suspicious microcalcifications are seen. No skin thickening or abnormal axillary lymph nodes are seen. There has been no significant change from prior exams. IMPRESSION: BI-RADS Category 1, Negative mammogram Yearly screening mammography is recommended. Breast Density - Category A, fatty density. A negative radiographic report should not delay biopsy if a dominant or clinically suspicious mass is present. Up to ten percent of cancers are not identified on mammography. A negative report may reinforce clinical impression. Adenosis and dense breasts may obscure an underlying neoplasm. False positive reports average 6 to 10%. Patient will receive a letter notifying them of these results.
== END 2024-03-05 03:19 ==
LOC: DI 02:59
PROVIDERS: PCP Nurse Practitioner Family; Visit Provider Obstetrics & Gynecology
DX: R92.8 Other abnormal and inconclusive findings on diagnostic imaging of breast (principal); Z12.31 Encounter for screening mammogram for malignant neoplasm of breast
CPT/HCPCS: 77062; 77066; G0279

== ENCOUNTER 2024-08-25 10:46 | Outpatient (CLI) | payer OTHER, SELFPAY ==
--- NOTE | 2024-08-25 11:32 | DI.RAD_ITS ---
Exam(s) XR CHEST 2V PA LATERAL EXAM: XR CHEST 2V PA LATERAL CLINICAL HISTORY: cough, productive, ? pneumonia TECHNIQUE: 2D digital imaging was performed. Two views. COMPARISON: No exams were available for comparison FINDINGS: HEART: Normal size. Aorta: Not dilated. PULMONARY VASCULATURE: Normal. MEDIASTINUM: Unremarkable. LUNGS: Bilateral linear scarring, otherwise clear. PLEURAL SPACE: No pleural effusion or pneumothorax. BONE:Unremarkable for age. SOFT TISSUES: Unremarkable. IMPRESSION: No acute abnormality. DATA REPOSITORY: RADIATION DOSE DELIVERED:
--- NOTE | 2024-08-25 11:52 | DI.VRAD_ITS ---
PROCEDURE INFORMATION: Exam: XR Chest Exam date and time: 08/25/2024 11:25 AM Age: 48 years old Clinical indication: Cough and other: Productive cough and recent flu diagnosis per patient TECHNIQUE: Imaging protocol: Radiologic exam of the chest. Views: 2 views. COMPARISON: CT CHEST WO 06/15/2023 10:28 AM FINDINGS: Lungs: Atelectasis in the left base. No consolidation. Pleural spaces: Unremarkable. No pleural effusion. No pneumothorax. Heart/Mediastinum: Unremarkable. No cardiomegaly. Bones/joints: Unremarkable. IMPRESSION: No acute findings. Dictated and Authenticated by: Redd Marti MD. Orderin Aguilar Aguirre MD
== END 2024-08-25 11:06 ==
LOC: DI 10:52
PROVIDERS: PCP Nurse Practitioner Family; Visit Provider Nurse Practitioner Acute Care
DX: J10.1 Influenza due to other identified influenza virus with other respiratory manifestations (principal); R05.9 Cough, unspecified
CPT/HCPCS: 71046

== ENCOUNTER 2025-01-22 03:15 | Outpatient (CLI) | payer OTHER, SELFPAY ==
[2025-01-22 13:41] LABS: ALT 22 U/L (14-59); AST 21 U/L (15-37); Albumin 3.3 g/dL (3.4-5.0); Alkaline Phosphatase 91 U/L (46-116); Anion Gap 5.5 mmol/L (3-11); BUN 22 mg/dL (7-18); Bilirubin, Total 0.2 mg/dL (0.2-1.0); CO2 29.5 mmol/L (21.0-32.0); Calcium 9.1 mg/dL (8.5-10.1); Calculated LDL 127 mg/dL (<100); Chloride 107 mmol/L (98-107); Cholesterol 192 mg/dL (<200); Estimated GFR 77.40 (mL/min/1.73m2); Glucose 92 mg/dL (74-106); HDL Cholesterol 42 mg/dL (>or=50); Magnesium 2.2 mg/dL (1.8-2.4); Potassium 4.2 mmol/L (3.5-5.1); Sodium 142 mmol/L (136-145); Total Protein 6.9 g/dL (6.4-8.2); Triglyceride 117 mg/dL (<150); Vitamin D 25 Total 29 ng/mL (30-100)
== END 2025-01-22 03:16 | disposition home or self-care (01) ==
LOC: LOS 03:15
PROVIDERS: PCP Nurse Practitioner Family; Visit Provider Nurse Practitioner Family
DX: E78.5 Hyperlipidemia, unspecified (principal); M62.838 Other muscle spasm; E55.9 Vitamin D deficiency, unspecified
CPT/HCPCS: 36415; 80053; 80061; 82306; 83735

== ENCOUNTER → 2025-07-02 00:37 | Outpatient (CLI) | payer OTHER, SELFPAY ==
--- NOTE | 2025-07-02 08:00 | DI.MAMMO_ITS ---
Exam(s) MAMMO SCREENING EXAM: MAMMO SCREENING CLINICAL HISTORY: screening,Z12.39 TECHNIQUE: Mammograms were interpreted according to the usual protocol including computer analysis with CAD system, tomosynthesis and C-view imaging. COMPARISON: 2022 in 2023 FINDINGS: The breasts are composed of mainly fatty density , Breast Density category A. No suspicious masses or suspicious microcalcifications are seen. No skin thickening or abnormal axillary lymph nodes are seen. There has been no significant change from prior exams. IMPRESSION: BI-RADS Category 1, Negative mammogram Yearly screening mammography is recommended. Breast Density- Category A - The breast are almost entirely fatty. Breast density Category C or D implies that the patient has dense breast tissue. Dense breast tissue can make it harder to find cancer on a mammogram. Dense breast tissue is also associated with an increased risk of breast cancer. This information about the result of the mammogram report was provided to the patient to raise their awareness. Use this report when you speak with the patient about their risks for breast cancer, which includes their family history. At that time, you may recommend additional screening tests (Ultrasound or MRI) as these tests may add significant information. A negative radiographic report should not delay biopsy if a dominant or clinically suspicious mass is present. Up to ten percent of cancers are not identified on mammography. A negative report may reinforce clinical impression. Adenosis and dense breasts may obscure an underlying neoplasm. False positive reports average 6 to 10%. Patient will receive a letter notifying them of these results.
== END ==
LOC: DI 00:37
PROVIDERS: PCP Nurse Practitioner Family; Visit Provider Obstetrics & Gynecology
DX: Z12.31 Encounter for screening mammogram for malignant neoplasm of breast (principal)
CPT/HCPCS: 77063; 77067